=== PATIENT | female | born 1985 | race Caucasian/White ===

== ENCOUNTER 2017-10-02 11:55 | Emergency (ER) | payer SELFPAY ==
[~2017-10-02] VITALS: Ht 157.5 cm; Wt 50.0 kg
[2017-10-02 12:11] VITALS: BP 155/104; Ht 157.5 cm; Wt 50.0 kg
[2017-10-02 13:21] LABS: HCG URINE NEGATIVE (NEGATIVE)
[2017-10-02 13:25] LABS: APPEARANCE TURBID (CLEAR); BILIRUBIN NEGATIVE (NEGATIVE); COLOR DK YELLOW (YELLOW); GLUCOSE NEGATIVE (NEGATIVE); KETONE NEGATIVE (NEGATIVE); NITRITE NEGATIVE (NEGATIVE); PROTEIN 1+ mg/dL (NEGATIVE); SPECIFIC GRAVITY 1.025 (1.005-1.020); UROBILINOGEN NORMAL (NORMAL)
[2017-10-02 13:26] LABS: BACTERIA MANY /hpf (NONE SEEN); EPITHELIAL CELLS 0-5 /hpf (0-5); MUCUS <1+ /lpf (NONE SEEN)
[2017-10-02] MEDS ORDERED: BACTRIM DS TABL1 TAB PO (13:31)
== END 2017-10-02 13:52 | disposition home or self-care (01) ==
LOC: D.ER 11:55
PROVIDERS: Family Medicine
DX: N39.0 Urinary tract infection, site not specified (principal); F17.200 Nicotine dependence, unspecified, uncomplicated

== ENCOUNTER 2018-01-18 21:09 | Emergency (ER) | payer SELFPAY ==
[~2018-01-18] VITALS: Ht 157.5 cm; Wt 59.1 kg
[~2018-01-18 21:09] MED LIST: BACTRIM DS TABL1 TAB PO
[2018-01-18 21:16] VITALS: Ht 157.5 cm; Wt 59.1 kg
[2018-01-18] MEDS ORDERED: AUGMENTIN 875-11 TAB PO (21:42)
[2018-01-18] MEDS ORDERED: FLUTICASONE PRO16 GM NASAL (21:42)
[2018-01-18 22:06] VITALS: BP 132/85
== END 2018-01-18 22:07 | disposition home or self-care (01) ==
LOC: D.ER 21:09
DX: J01.90 Acute sinusitis, unspecified (principal); R09.89 Other specified symptoms and signs involving the circulatory and respiratory systems; F17.200 Nicotine dependence, unspecified, uncomplicated

== ENCOUNTER 2018-04-22 21:15 | Emergency (ER) | payer MEDICAID ==
[~2018-04-22] VITALS: Ht 157.5 cm; Wt 59.1 kg
[~2018-04-22 21:15] MED LIST changes: +AUGMENTIN 875-11 TAB PO; +FLUTICASONE PRO16 GM NASAL
[2018-04-22 21:24] VITALS: Ht 157.5 cm; Wt 59.1 kg
[2018-04-22] MEDS ORDERED: VIBRAMYCIN 100100 MG PO (22:32)
[2018-04-22] MEDS ORDERED: PHENERGAN DM SYR5 ML PO (22:32)
[2018-04-22 23:14] VITALS: BP 130/74
== END 2018-04-22 23:14 | disposition home or self-care (01) ==
LOC: D.ER 21:15
DX: J06.9 Acute upper respiratory infection, unspecified (principal); M79.18 Myalgia, other site; F17.200 Nicotine dependence, unspecified, uncomplicated